=== PATIENT | male | born 1955 | race Caucasian/White ===

== ENCOUNTER 2022-12-14 11:34 | Inpatient (IN) | payer OTHER ==
[2022-12-14 12:15] VITALS: BMI 28.0
[2022-12-14] MEDS ORDERED: MAG HYDROX/AL HYDROX/SIMETH 30 ML UNIT-DOSE CUP PO PRN (14:04)
[2022-12-14] MEDS ORDERED: ONDANSETRON *ODT* 4 MG TABLET SL PRN (14:04)
[2022-12-14] MEDS ORDERED: NALOXONE HCL 0.4 MG/ML VIAL IM PRN (14:04)
[2022-12-14] MEDS ORDERED: IBUPROFEN 600 MG TABLET (FP) PO PRN (14:04)
[2022-12-14] MEDS ORDERED: METHOCARBAMOL 500 MG TABLET PO PRN (14:04)
[2022-12-14] MEDS ORDERED: POLYETHYLENE GLYCOL (HEALTHYLAX) 3350 17 GM PACKET PO PRN (14:04)
[2022-12-14] MEDS ORDERED: DICYCLOMINE HCL 10 MG CAPSULE PO PRN (14:04)
[2022-12-14] MEDS ORDERED: BENZONATATE 200 MG CAPSULE PO PRN (14:04)
[2022-12-14] MEDS ORDERED: NALOXONE HCL (KLOXXADO) 8 MG SPRAY NS PRN (14:04)
[2022-12-14] MEDS ORDERED: IBUPROFEN 400 MG TABLET (FP) PO PRN (14:04)
[2022-12-14] MEDS ORDERED: MAGNESIUM HYDROX 2400MG/30ML ORAL SUSPENSION 30 ML CUP PO PRN (14:04)
[2022-12-14] MEDS ORDERED: BENZOCAINE/MENTHOL (CHLORASEPTIC ) LOZENGE MM PRN (14:04)
[2022-12-14] MEDS ORDERED: guaiFENesin 600 MG TABLET.ER (FP) PO PRN (14:04)
[2022-12-14] MEDS ORDERED: hydrOXYzine PAMOATE 25 MG CAPSULE (FP) PO PRN (14:04)
[2022-12-14] MEDS ORDERED: ACETAMINOPHEN 325 MG TABLET (FP) PO PRN (14:04)
[2022-12-14] MEDS ORDERED: LOPERAMIDE HCL 2 MG CAPSULE PO PRN (14:04)
[2022-12-14] MEDS ORDERED: BISMUTH SUBSALICYLATE 524 MG/30 ML PO PRN (14:04)
[2022-12-14] MEDS ORDERED: BACLOFEN 10 MG TABLET (FP) PO PRN (14:07)
[2022-12-14] MEDS: THIAMINE HCL 100 MG TABLET (FP) PO SCH (22:15)
[2022-12-14] MEDS: MELATONIN 5 MG TABLETS PO SCH (22:15)
[2022-12-15] MEDS ORDERED: chlordiazePOXIDE HCL 25 MG CAPSULE PO PRN (08:51)
[2022-12-15] MEDS: metFORMIN HCL 500 MG TABLET (FP) PO SCH (09:52)
[2022-12-15] MEDS: PRENATAL VITAMINS W/ FOLIC ACID TABLET (FP) PO SCH (10:17)
[2022-12-15] MEDS: LISINOPRIL 5 MG TABLET PO SCH (10:18)
[2022-12-15 10:52] LABS: HEMATOCRIT 33.8 % (35.4-49); HEMOGLOBIN 11.5 GM/dL (11.7-16.9); MCH 30.4 pg (25.7-33.7); MCHC 34.1 g/dl (32.0-35.9); MEAN CELL VOLUME 89.3 fl (80-96); MEAN PLT VOLUME 9.5 fl (7.5-11.1); PLATELET COUNT 227 10^3/uL (134-434); RBC 3.78 M/mm3 (4.00-5.60); RDW 13.7 % (11.9-15.9); WHITE BLOOD COUNT 4.8 K/mm3 (4.0-10.0)
[2022-12-15 10:53] LABS: POTASSIUM 4.4 mmol/L (3.5-5.1)
[2022-12-15] MEDS: chlordiazePOXIDE HCL 25 MG CAPSULE PO SCH ×3 (11:00→22:12)
[2022-12-15 11:08] LABS: CREATININE 0.9 mg/dL (0.55-1.3)
[2022-12-15 11:09] LABS: BILIRUBIN,TOTAL 0.1 mg/dL (0.2-1); TOT PROT 7.6 g/dl (6.4-8.2)
[2022-12-15 11:12] LABS: BLOOD UREA NITROGEN 13.4 mg/dL (7-18)
[2022-12-15 11:13] LABS: ALBUMIN 3.6 g/dl (3.4-5.0)
[2022-12-15 11:14] LABS: CALCIUM 9.5 mg/dL (8.5-10.1)
[2022-12-15] MEDS ORDERED: PNEUMOC 20-VAL CONJ-DIP CRM/PF 0.5 ML SYRINGE IM ONE (12:00)
[2022-12-15 13:57] LABS: HIV INTERPRETATION NEGATIVE (NEGATIVE)
[2022-12-15] MEDS: THIAMINE HCL 100 MG TABLET (FP) PO SCH (22:10)
[2022-12-15] MEDS: ATORVASTATIN CA 20 MG TABLET (FP) PO SCH (22:10)
[2022-12-15] MEDS: TAMSULOSIN HCL 0.4 MG CAP PO SCH (22:10)
[2022-12-15] MEDS: MELATONIN 5 MG TABLETS PO SCH (22:12)
[2022-12-16] MEDS: chlordiazePOXIDE HCL 25 MG CAPSULE PO SCH ×4 (05:20→22:59)
[2022-12-16] MEDS: metFORMIN HCL 500 MG TABLET (FP) PO SCH (06:11)
[2022-12-16] MEDS: PRENATAL VITAMINS W/ FOLIC ACID TABLET (FP) PO SCH (10:09)
[2022-12-16] MEDS: LISINOPRIL 5 MG TABLET PO SCH (10:09)
[2022-12-16 18:26] LABS: URINE APPEARANCE CLEAR; URINE BILIRUBIN NEGATIVE (NEGATIVE); URINE COLOR YELLOW; URINE GLUCOSE (UA) 3+ (NEGATIVE); URINE KETONE NEGATIVE (NEGATIVE); URINE LEUK ESTERASE NEGATIVE (NEGATIVE); URINE NITRITE NEGATIVE (NEGATIVE); URINE PROTEIN NEGATIVE (NEGATIVE); URINE UROBILINOGEN 0.2 mg/dL (0.2-1.0)
[2022-12-16] MEDS: ATORVASTATIN CA 20 MG TABLET (FP) PO SCH (22:08)
[2022-12-16] MEDS: THIAMINE HCL 100 MG TABLET (FP) PO SCH (22:08)
[2022-12-16] MEDS: TAMSULOSIN HCL 0.4 MG CAP PO SCH (22:08)
[2022-12-16] MEDS: MELATONIN 5 MG TABLETS PO SCH (22:08)
[2022-12-17] MEDS: chlordiazePOXIDE HCL 25 MG CAPSULE PO SCH ×4 (05:15→22:29)
[2022-12-17] MEDS: metFORMIN HCL 500 MG TABLET (FP) PO SCH (06:23)
[2022-12-17] MEDS ORDERED: diazePAM 5 MG TABLET PO ONE (08:57)
[2022-12-17] MEDS: PRENATAL VITAMINS W/ FOLIC ACID TABLET (FP) PO SCH (10:19)
[2022-12-17] MEDS: LISINOPRIL 5 MG TABLET PO SCH (10:21)
[2022-12-17] MEDS: INSULIN SLIDING SCALE (NOVOLOG) 1 VIAL SQ SCH ×2 (17:35→21:38)
[2022-12-17] MEDS ORDERED: INSULIN (NOVOLOG) ASPART 100 UNITS/ML 10ML VIAL ONE (17:37)
[2022-12-17] MEDS: THIAMINE HCL 100 MG TABLET (FP) PO SCH (22:28)
[2022-12-17] MEDS: ATORVASTATIN CA 20 MG TABLET (FP) PO SCH (22:28)
[2022-12-17] MEDS: MELATONIN 5 MG TABLETS PO SCH (22:29)
[2022-12-17] MEDS: TAMSULOSIN HCL 0.4 MG CAP PO SCH (22:29)
[2022-12-18] MEDS ORDERED: chlordiazePOXIDE HCL 10 MG CAPSULE PO PRN
[2022-12-18] MEDS: chlordiazePOXIDE HCL 10 MG CAPSULE PO SCH ×4 (05:17→22:29)
[2022-12-18] MEDS ORDERED: INSULIN (NOVOLOG) ASPART 100 UNITS/ML 10ML VIAL ONE ×4 (05:19→23:16)
[2022-12-18] MEDS: metFORMIN HCL 500 MG TABLET (FP) PO SCH (06:15)
[2022-12-18] MEDS: INSULIN SLIDING SCALE (NOVOLOG) 1 VIAL SQ SCH ×4 (07:46→23:24)
[2022-12-18] MEDS: PRENATAL VITAMINS W/ FOLIC ACID TABLET (FP) PO SCH (10:16)
[2022-12-18] MEDS: LISINOPRIL 5 MG TABLET PO SCH (10:16)
[2022-12-18] MEDS: TAMSULOSIN HCL 0.4 MG CAP PO SCH (22:29)
[2022-12-18] MEDS: MELATONIN 5 MG TABLETS PO SCH (22:29)
[2022-12-18] MEDS: ATORVASTATIN CA 20 MG TABLET (FP) PO SCH (22:29)
[2022-12-18] MEDS: THIAMINE HCL 100 MG TABLET (FP) PO SCH (22:29)
[2022-12-19] MEDS: chlordiazePOXIDE HCL 10 MG CAPSULE PO SCH ×2 (05:14→16:45)
[2022-12-19] MEDS: metFORMIN HCL 500 MG TABLET (FP) PO SCH (06:10)
[2022-12-19] MEDS: INSULIN SLIDING SCALE (NOVOLOG) 1 VIAL SQ SCH ×4 (06:51→22:44)
[2022-12-19] MEDS: LISINOPRIL 5 MG TABLET PO SCH (10:08)
[2022-12-19] MEDS: PRENATAL VITAMINS W/ FOLIC ACID TABLET (FP) PO SCH (10:09)
[2022-12-19] MEDS ORDERED: INSULIN (NOVOLOG) ASPART 100 UNITS/ML 10ML VIAL ONE ×2 (16:47→22:46)
[2022-12-19] MEDS: MELATONIN 5 MG TABLETS PO SCH (22:44)
[2022-12-19] MEDS: ATORVASTATIN CA 20 MG TABLET (FP) PO SCH (22:47)
[2022-12-19] MEDS: THIAMINE HCL 100 MG TABLET (FP) PO SCH (22:47)
[2022-12-19] MEDS: TAMSULOSIN HCL 0.4 MG CAP PO SCH (22:47)
[2022-12-20] MEDS ORDERED: chlordiazePOXIDE HCL 10 MG CAPSULE PO ONE (05:00)
[2022-12-20] MEDS: metFORMIN HCL 500 MG TABLET (FP) PO SCH (06:49)
[2022-12-20] MEDS: INSULIN SLIDING SCALE (NOVOLOG) 1 VIAL SQ SCH (07:47)
[2022-12-20] MEDS ORDERED: INSULIN (NOVOLOG) ASPART 100 UNITS/ML 10ML VIAL ONE (07:53)
[2022-12-20 09:32] VITALS: BP 106/61; PULSE 104; RESP 18; TEMP 97.8
== END 2022-12-20 09:41 | disposition home or self-care (01) | DRG 897 ==
LOC: YASAS 11:34 → Y6N 15:14 → UNDOADMIN 15:14
PROVIDERS: ADMIT Allergy & Immunology; ATTEND Surgery
PROC: HZ2ZZZZ Detoxification Services for Substance Abuse Treatment (ICD-10-PCS; principal; 2022-12-14)
DX: F10.230 Alcohol dependence with withdrawal, uncomplicated (principal); F14.20 Cocaine dependence, uncomplicated; I10 Essential (primary) hypertension; E78.2 Mixed hyperlipidemia; E11.9 Type 2 diabetes mellitus without complications; Z79.84 Long term (current) use of oral hypoglycemic drugs; N40.0 Benign prostatic hyperplasia without lower urinary tract symptoms; R76.11 Nonspecific reaction to tuberculin skin test without active tuberculosis
CPT/HCPCS: 36415; 71046-TC-FY; 80053; 81003; 82962; 85027; 86780; 87389; 87635; 90677; 93005; 93010